=== PATIENT | male | born 1945 | race Caucasian/White ===

== ENCOUNTER 2017-03-31 10:43 | Emergency (ER) | payer OTHER ==
[~2017-03-31] VITALS: Ht 188 cm; Wt 96.0 kg
[~2017-03-31 10:43] MED LIST: AMIO200T42 PO; ASCO-96 PO; ASPI-496 PO; ATOR20TA9 PO; CALC-260 PO; CARV-39 PO; CINN500C2 PO; DOXA4TAB3 PO; FINA5TAB4 PO; FLAX1CAP PO; FURO80TA3 PO; GABA300C10 PO; GINK30CA2 PO; GLIM2TAB2 PO; GLIP5TAB10 PO; Iron PO; KRIL1CAP6 PO; LECI400C PO; LISI-170 PO; MAGN400T7 PO; METF10002 PO; METF500T4 PO; MULT-187 PO; OMEP-110 PO; OXYC1TAB7 PO; OXYC5TAB3 PO; POTA10TA6 PO; POTASSIUM PO; SULF1TAB24 PO; TEMA30CA PO; TRAM50TA2 PO; UBID100C24 PO; VITA1CAP7 PO; Zinc PO; [UNRECOGNIZED DRUG - CODE] PO
[2017-03-31 10:55] VITALS: BP 125/70
[2017-03-31] MEDS ORDERED: SODIUM CHLORIDE FLUSH 10ML SYR IVF ONE (11:30)
[2017-03-31] MEDS ORDERED: ASPIRIN 81 MG TABLET CHEW PO ONE (11:30)
[2017-03-31] MEDS ORDERED: ASPIRIN 81 MG TABLET CHEW ONE (11:32)
[2017-03-31 11:40] LABS: BLOOD UREA NITROGEN 25 mg/dL (7-18)
[2017-03-31 11:47] LABS: ASPARTATE AMINO TRANSFERASE 20 U/L (15-37)
[2017-03-31 11:50] LABS: IS PT STATUS REG ER OR PRE ER? YES
[2017-04-14] MEDS ORDERED: MULT-658 PO (17:33)
[2017-04-14] MEDS ORDERED: CALC-680 PO (17:33)
== END 2017-03-31 13:34 | disposition left against medical advice (07) ==
LOC: ED 12:31 → EDIP 12:34 → UNDOADMIN 12:34 → UNDODISIN 13:34
DX: F45.8 Other somatoform disorders (principal); I11.0 Hypertensive heart disease with heart failure; I50.9 Heart failure, unspecified; E11.9 Type 2 diabetes mellitus without complications; Z85.46 Personal history of malignant neoplasm of prostate; Z87.891 Personal history of nicotine dependence
CPT/HCPCS: 36415; 71010; 80053; 83735; 83880; 84484; 85025; 85610; 85730; 93005; 99285

== ENCOUNTER 2017-07-07 09:40 | Day surgery (SDC) | payer OTHER ==
[~2017-07-07] VITALS: Ht 188 cm; Wt 96.8 kg
[~2017-07-07 09:40] MED LIST changes: +ASPI-621 PO; +CALC-680 PO; +CARV6.252 PO; +FURO40TA6 PO; +LISI5TAB7 PO; +MULT-658 PO
[2017-07-07] MEDS ORDERED: SODIUM CHLORIDE 0.9% 1,000 ML IV SCH (09:48)
[2017-07-07 09:58] VITALS: BP 127/83
[2017-07-07] MEDS ORDERED: POTA20PA25 PO (10:24)
[2017-07-07] MEDS ORDERED: LISI5TAB7 PO (10:24)
[2017-07-07] MEDS ORDERED: FURO20TA3 PO (10:24)
[2017-07-07] MEDS ORDERED: ATOR20TA9 PO (10:24)
[2017-07-07] MEDS ORDERED: TEMA30CA PO (10:24)
[2017-07-07] MEDS ORDERED: METF500T4 PO (10:24)
[2017-07-07] MEDS ORDERED: FURO80TA3 PO (10:24)
[2017-07-07] MEDS ORDERED: LINA5TAB PO (10:24)
[2017-07-07] MEDS ORDERED: CARV3.1212 PO (10:24)
[2017-07-07] MEDS ORDERED: AMIO200T42 PO (10:24)
[2017-07-07] MEDS ORDERED: VITA150T PO (10:31)
[2017-07-07 10:40] LABS: BASOPHILS # (AUTO) 0.01 x10^3/uL (0-0.1); BASOPHILS % (AUTO) 0 % (0-1); EOSINOPHILS # (AUTO) 0.05 x10^3/uL (0-0.4); EOSINOPHILS % (AUTO) 1 % (1-7); LYMPHOCYTES # (AUTO) 0.52 x10^3/uL (1-3.4); LYMPHOCYTES % (AUTO) 8 % (22-44); MD NO; MEAN CORPUSCULAR HEMOGLOBIN 32.8 pg (27.5-34.5); MEAN CORPUSCULAR HGB CONC 34.1 g/dL (33.2-36.2); MEAN CORPUSCULAR VOLUME 96.1 fL (81-97); MEAN PLATELET VOLUME 8.5 fL (7.4-10.4); MONOCYTES # (AUTO) 0.42 x10^3/uL (0.2-0.8); MONOCYTES % (AUTO) 7 % (2-9); NEUTROPHILS # (AUTO) 5.15 x10^3/uL (1.8-6.8); NEUTROPHILS % (AUTO) 84 % (42-75); PLATELET COUNT 226 x10^3/uL (130-400); RED BLOOD COUNT 3.86 x10^6/uL (4.38-5.82); RED CELL DISTRIBUTION WIDTH 13.7 % (9.4-14.8)
[2017-07-07 10:47] LABS: INTERNATIONAL NORMALIZED RATIO 1.04 (0.93-1.1); PROTHROMBIN TIME 10.8 Seconds (9.6-11.5)
[2017-07-07 10:51] LABS: ANION GAP 9 mmol/L (5-15); CALCIUM 8.5 mg/dL (8.5-10.1); CHLORIDE 107 mmol/L (98-107)
[2017-07-07 10:52] LABS: CREATININE 1.64 mg/dL (0.7-1.3)
[2017-07-07] MEDS ORDERED: CEFAZOLIN 1,000 MG ONE ×2 (11:03→11:10)
[2017-07-07] MEDS ORDERED: PROPOFOL 10 MG/ML, 20ML ONE (11:03)
[2017-07-07] MEDS ORDERED: PROPOFOL 10 MG/ML, 50ML ONE (11:03)
[2017-07-07] MEDS ORDERED: FENTANYL PF 100 MCG/2ML ONE (11:05)
[2017-07-07] MEDS ORDERED: MIDAZOLAM 1 MG/ML, 2ML ONE (11:05)
[2017-07-07] MEDS ORDERED: CEFAZOLIN PMX 1GM/50ML 50 ML ONE (11:10)
[2017-07-07] MEDS ORDERED: LIDOCAINE 2%, 20ML ONE (11:10)
[2017-07-07] MEDS ORDERED: HYDROcodone/APAP 5/325 TABLET PO PRN (12:00)
[2017-07-07] MEDS ORDERED: CEPH-368 PO (12:19)
[2017-07-07] MEDS ORDERED: FUROSEMIDE 20 MG TABLET PO SCH (21:00)
[2017-07-07] MEDS ORDERED: SODIUM CHLORIDE FLUSH 10ML SYR IVF SCH (21:00)
[2017-07-07] MEDS ORDERED: metFORMIN 500 MG TABLET PO SCH (21:00)
[2017-07-07] MEDS ORDERED: TEMAZEPAM 30 MG CAPSULE PO SCH (21:00)
[2017-07-07] MEDS ORDERED: CARVEDILOL 3.125 MG TABLET PO SCH (21:00)
[2017-07-07] MEDS ORDERED: POTASSIUM CHLORIDE 20 MEQ PACKET PO SCH (21:00)
[2017-07-07] MEDS ORDERED: MAGNESIUM OXIDE 400 MG TABLET PO SCH (21:00)
[2017-07-07] MEDS ORDERED: OMEPRAZOLE 20 MG CAPSULE.DR PO SCH (21:00)
[2017-07-08] MEDS ORDERED: CALCIUM CITRATE 950 MG TABLET PO SCH (09:00)
[2017-07-08] MEDS ORDERED: AMIODARONE 200 MG TABLET PO SCH (09:00)
[2017-07-08] MEDS ORDERED: TEMPLATE NON-FORMULARY MED. (Vitamin B Complex & Vit C No.4 (Super B Complex) 1 TAB) PO SCH (09:00)
[2017-07-08] MEDS ORDERED: FUROSEMIDE 80 MG TABLET PO SCH (09:00)
[2017-07-08] MEDS ORDERED: TEMPLATE NON-FORMULARY MED. (Glimepiride** 2 MG) PO SCH (09:00)
[2017-07-08] MEDS ORDERED: TEMPLATE NON-FORMULARY MED. (Linagliptin** (Tradjenta**) 5 MG) PO SCH (09:00)
[2017-07-08] MEDS ORDERED: LISINOPRIL 5 MG TABLET PO SCH (09:00)
[2017-07-08] MEDS ORDERED: MULTIVITAMIN 1 TABLET PO SCH (09:00)
[2017-07-09] MEDS ORDERED: ATORVASTATIN 20 MG TABLET PO SCH (09:00)
== END 2017-07-07 13:18 ==
LOC: CACL 09:40
PROVIDERS: ATTEND Internal Medicine Cardiovascular Disease
DX: Z45.02 Encounter for adjustment and management of automatic implantable cardiac defibrillator (principal); I10 Essential (primary) hypertension; E11.9 Type 2 diabetes mellitus without complications
CPT/HCPCS: 33263; 36415; 71046; 80048; 85025; 85610; 93641; C1721; J0690; J2250; J2704; J3010; J3490

== ENCOUNTER → 2017-08-12 | Outpatient (CLI) | payer OTHER ==
[~2017-08-12] MED LIST changes: +CARV3.1212 PO; +CEPH-368 PO; +FURO20TA3 PO; +LINA5TAB PO; +POTA20PA25 PO; +REGADENOSON 0.4 MG/5 ML SYRINGE ONE; +VITA150T PO
== END | disposition home or self-care (01) ==
LOC: CFH 06:41
PROVIDERS: ATTEND Nurse Practitioner Family
DX: I08.1 Rheumatic disorders of both mitral and tricuspid valves (principal); I10 Essential (primary) hypertension; I42.9 Cardiomyopathy, unspecified; E78.5 Hyperlipidemia, unspecified; Z85.46 Personal history of malignant neoplasm of prostate; E11.9 Type 2 diabetes mellitus without complications; Z95.810 Presence of automatic (implantable) cardiac defibrillator
CPT/HCPCS: 78452; 93017; 93306; A9502; J2785

== ENCOUNTER → 2018-05-12 | Outpatient (CLI) | payer OTHER ==
[~2018-05-12] MED LIST changes: +METF500T17 PO; -METF500T4 PO; -REGADENOSON 0.4 MG/5 ML SYRINGE ONE; +SPIR25TA PO
== END | disposition home or self-care (01) ==
LOC: CFH 10:35
PROVIDERS: ATTEND Internal Medicine Cardiovascular Disease
DX: I08.1 Rheumatic disorders of both mitral and tricuspid valves (principal); I37.1 Nonrheumatic pulmonary valve insufficiency; I10 Essential (primary) hypertension; E78.5 Hyperlipidemia, unspecified; E11.9 Type 2 diabetes mellitus without complications; Z85.46 Personal history of malignant neoplasm of prostate; Z87.891 Personal history of nicotine dependence; Z95.0 Presence of cardiac pacemaker
CPT/HCPCS: 93306

== ENCOUNTER → 2019-05-03 | Outpatient (CLI) | payer MEDICARE ==
[~2019-05-03] MED LIST changes: -ASPI-621 PO; +ASPI81TA45 PO; +ATOR20TA37 PO; -ATOR20TA9 PO; -GLIM2TAB2 PO; +GLIM2TAB3 PO; -MAGN400T7 PO; +MAGN400T9 PO
== END | disposition home or self-care (01) ==
LOC: CFH 07:50
PROVIDERS: ATTEND Registered Nurse
DX: I08.8 Other rheumatic multiple valve diseases (principal); E78.5 Hyperlipidemia, unspecified; I10 Essential (primary) hypertension; I42.9 Cardiomyopathy, unspecified
CPT/HCPCS: 93306